=== PATIENT | male | born 2005 | race Caucasian/White ===

== ENCOUNTER 2025-07-25 19:31 | Inpatient (IN) | payer BC, SELFPAY ==
[2025-07-25 21:07] LABS: Bacteria/HPF None Seen HPF (None Seen); CAUTI Indications for Culture Dysuria,urgency,freq; Glucose, Urine (Dipstick) Normal (Negative); Leukocyte Negative Leu/uL (Negative); Protein, Urine (Dipstick) Negative (Neg-Trace); RBC/HPF None Seen HPF (0-3); Specific Gravity, Urine 1.017 (1.002-1.036); WBC/HPF None Seen HPF (0-3)
[2025-07-25 21:15] LABS: Urine Culture Reflex No No
[2025-07-25] MEDS ORDERED: CEFAZOLIN 2 GM VIAL ONE (22:43)
[2025-07-25] MEDS ORDERED: hydrALAZINE 20 MG/ML VIAL SLOW IVP PRN (22:55)
[2025-07-25] MEDS ORDERED: Glucagon 1 MG/ML KIT IM PRN (22:55)
[2025-07-25] MEDS ORDERED: Dextrose 50% Abboject 50 ML SYRINGE SLOW IVP PRN (22:55)
[2025-07-25] MEDS ORDERED: Ondansetron PF 4 MG/2 ML Vial IVP PRN (22:55)
[2025-07-25 23:46] VITALS: BMI 23.3
[2025-07-26] MEDS: Methocarbamol 500 MG TAB PO PRN (00:08)
[2025-07-26] MEDS ORDERED: fentaNYL PF 100 MCG/2 ML SYRINGE ONE ×2 (00:48→02:21)
[2025-07-26] MEDS ORDERED: SUGAMMADEX SODIUM 200 MG/2 ML VIAL ONE (00:49)
[2025-07-26] MEDS ORDERED: Lidocaine 1% PF 5 ML VIAL ONE (00:49)
[2025-07-26] MEDS ORDERED: Ondansetron PF 4 MG/2 ML Vial ONE (00:49)
[2025-07-26] MEDS ORDERED: Rocuronium Bromide 10 MG/ML (10ML VIAL) ONE (00:49)
[2025-07-26] MEDS ORDERED: PROPOFOL 20 ML ONE ×2 (00:49→02:31)
[2025-07-26] MEDS ORDERED: Bacitracin Zinc Ointment 30 gm TUBE ONE (01:46)
[2025-07-26] MEDS ORDERED: Bupivacaine 0.25% HCL 30 ML VIAL ONE (01:46)
[2025-07-26] MEDS ORDERED: CEFAZOLIN 1 GM VIAL ONE (04:37)
[2025-07-26 06:23] LABS: #Basophils 0.05 10x3/uL (0.0-0.2); #Eosinophils Less than 0.03 10x3/uL (0.0-0.7); #Monocytes 0.21 10x3/uL (0.11-0.59); #Neutrophils 8.66 10x3/uL (1.40-6.50); %Basophils 0.5 % (0.0-1.0); %Eosinophils 0.2 % (0.0-10.0); %Lymphocytes 11.6 % (28.0-48.0); %Monocytes 2.1 % (0.0-4.0); %Neutrophils 85.2 % (31.0-61.0); Hematocrit 41.9 % (42.0-52.0); Hemoglobin 13.8 g/dL (14.0-18.0); Mean Corpuscular Hemoglobin 28.0 pg (25.0-35.0); Mean Corpuscular Volume 85.2 fL (78.0-98.0); Platelet Count 245 10x3/uL (130-400); Red Blood Cell (RBC) Count 4.92 mill/uL (4.00-5.20); White Blood Cell (WBC) Count 10.16 10x3/uL (4.8-10.8)
[2025-07-26 06:47] LABS: Anion Gap 13 mmol/L (10-20); BUN (Urea Nitrogen) 13 mg/dL (8.4-21.0); Calc. Creatinine Clearance 109 mL/min (70-130); Calcium 9.0 mg/dL (7.8-10.44); Carbon Dioxide 24 mmol/L (22-29); Chloride 104 mmol/L (98-107); Glucose 105 mg/dL (70-105); Potassium 4.0 mmol/L (3.5-5.1); Sodium 137 mmol/L (136-145)
[2025-07-26] MEDS: Senokot S 8.6-50 MG TAB PO SCH (08:11)
[2025-07-26] MEDS: Acetaminophen 325 MG TAB PO PRN (14:19)
[2025-07-26 14:57] VITALS: BP 123/71; TEMP 97.6
[2025-07-29] MEDS ORDERED: FLU (Fluarix Triv) 25-26 (6MOS UP)/PF 45 MCG/0.5 ML Syringe IM ONE (09:00)
== END 2025-07-26 15:45 | disposition home or self-care (01) | DRG 909 ==
LOC: ERS 19:31 → SURG A 21:30
PROVIDERS: ADMIT Surgery Trauma Surgery; ATTEND Surgery Trauma Surgery
PROC: 0VQS0ZZ Repair Penis, Open Approach (ICD-10-PCS; principal; 2025-07-25)
DX: S39.840A Fracture of corpus cavernosum penis, initial encounter (principal); X50.0XXA Overexertion from strenuous movement or load, initial encounter
CPT/HCPCS: 80048; 81001; 85025; 96365; J0665; J0690; J1100; J2250; J2270; J2405; J2704; J3010; J7120